=== PATIENT | female | born 1965 | race Caucasian/White ===

== ENCOUNTER 2019-05-27 11:07 | Inpatient (IN) | payer SELFPAY ==
[2019-05-27] MEDS ORDERED: IBUPROFEN 200 MG TAB PO ONE (11:21)
[2019-05-27] MEDS ORDERED: ACETAMINOPHEN 325 MG TAB PO ONE (11:25)
[2019-05-27] MEDS ORDERED: SODIUM CHLORIDE 0.9% 1000ML 1,000 ML IVS ONE ×2 (11:25→13:40)
[2019-05-27] MEDS ORDERED: ONDANSETRON INJ 4 MG/2 ML VIAL IV ONE (11:25)
[2019-05-27] MEDS ORDERED: cefTRIAXone SODIUM 1 GM in SODIUM CHL 0.9% 50ML MIN-BAG+ 50 ML IVPB ONE (11:25)
--- NOTE | 2019-05-27 11:29 | ED.PDOC ---
History of Present Illness - General Chief Complaint: Abdominal Pain Stated Complaint: Abdominal discomfort, dysuria, fever Time Seen by Provider: 05/27/19 11:24 Additional Information: Patient is a 53-year-old female who presents to the ED with chief complaint of urinary discomfort. Patient indicates that she has had dysuria and urinary frequency for the past 5 days. She indicates that today her symptoms became considerably worse with new left flank pain and patient came to the ED for evaluation. Patient had an episode of nausea and vomiting this morning. Patient denies fever at home but says "I just feel bad". Patient denies abdo catalina pain or diarrhea. She further denies chest pain or shortness of breath. Patient indicates that she has had a bladder or kidney infection "once or twice" in the past. Patient has no other complaints or concerns at this time. - History of Present Illness Allergies/Adverse Reactions: Allergies Codeine Allergy (Verified 05/27/19 11:15) Shortness of Breath Review of Systems - Review of Systems Constitutional: States: malaise. Denies: chills EENTM: States: no symptoms reported. Denies: throat pain Respiratory: Denies: cough, orthopnea, short of breath, wheezing Cardiology: Denies: chest pain, palpitations Gastrointestinal/Abdominal: States: nausea, vomiting. Denies: abdominal pain, diarrhea Genitourinary: States: see HPI, dysuria, frequency. Denies: hematuria Musculoskeletal: States: no symptoms reported. Denies: muscle pain Skin: States: no symptoms reported. Denies: rash Neurological: States: no symptoms reported All other Systems: Reviewed and Negative Past Medical History (General) - Patient Medical History Hx Stroke: No Hx Cardiac Disorders: Yes - Hypercholesterolemia Hx Congestive Heart Failure: No Hx Diabetes: No Hx MRSA: No - Vaccination History Hx Influenza Vaccination: No Hx Pneumococcal Vaccination: No - Social History Hx Tobacco Use: Yes Hx Alcohol Use: Yes - Social Hx Substance Use: No Family Medical History - Family History Mother Living Status: Still Living Hx Family Hypertension: Yes Physical Exam - Physical Exam General Appearance: Alert, Comfortable, No apparent distress, Well Developed, Well Nourished Eyes, Ears, Nose, Throat Exam: normal ENT inspection, pharynx normal Neck: full range of motion, supple, normal inspection Cardiovascular/Respiratory: no M/R/G, normal peripheral pulses, no JVD, normal breath sounds, no respiratory distress, tachycardia Gastrointestinal/Abdominal: normal bowel sounds, soft, tenderness - Mild suprapubic Back Exam: normal inspection, CVA tenderness (L) - Mild Extremity: normal range of motion, non-tender, normal inspection, no pedal edema Neurologic: undertaker helper II-XII nml as tested, no motor/sensory deficits, alert, normal mood/affect, oriented x 3 Skin Exam: normal color, warm/dry Progress - Progress Progress: 05/27/19 11:32 Differential diagnosis includes but is not limited to sepsis, pyelonephritis, UTI, viral illness 05/27/19 13:43 Patient reassessed and is feeling much better at this time status post IV fluids and antibiotics. Patient's urine is considerably dirty and her CT is consistent with pyelonephritis and this does match the clinical picture. Patient has been cultured and IV Rocephin given, patient will need admission for IV antibiotics and fluids. Patient's lactate is pending but I believe she does meet sepsis parameters. 05/27/19 13:[address] Castillo, hospitalist, who accepts patient for admission. 05/27/19 14:28 EKG: Normal sinus rhythm, rate of 73, prolonged WV, normal QRS, normal axis, normal ST and T waves, negative STEMI. Read by Melquiades Maurer MD. Departure - Departure Clinical Impression: Pyelonephritis, Severe sepsis without septic shock Time of Disposition: 13:46 Disposition: Admit Patient Condition: Fair Decision To Admit - Decistion To Admit Decision to Admit Reason: Admit from ER Decision to Admit Date: 05/27/19 Decision to Admit Time: 13:47
[2019-05-27] MEDS ORDERED: cefTRIAXone SODIUM 1 GM VIAL ONE (11:44)
[2019-05-27] MEDS ORDERED: SODIUM CHL 0.9% 50ML MIN-BAG+ 50 ML IVPB ONE (11:45)
--- NOTE | 2019-05-27 12:55 | CT ---
EXAM DESCRIPTION: Abdomen/Pelvis w/Contrast CLINICAL HISTORY: 53 years Female, Pyelonephritis TECHNIQUE: This exam was performed according to our departmental dose-optimization program, which includes automated exposure control, adjustment of the mA and/or kV according to patient size and/or use of iterative reconstruction technique. COMPARISON: None at time of initial interpretation. FINDINGS: Visualized lung bases are grossly unremarkable. Posterior right hepatic lobe low-attenuation lesion either a cyst or a hemangioma. No suspicious hepatic lesion. No biliary dilatation. The gallbladder is decompressed. The spleen, pancreas and adrenal glands are unremarkable. Asymmetric enlargement of the left kidney. Heterogeneous left renal enhancement. No hydronephrosis or urolithiasis identified. Asymmetrically increased left perinephric/periureteral fat stranding. Low-attenuation left renal lesion measuring 2.6 cm series 2 image 40. Bladder is decompressed. No adnexal mass. Scattered colonic diverticula without focal inflammatory change. No evidence of bowel obstruction. No findings to suggest appendicitis. No adenopathy. No focal fluid collection. No free air. Normal caliber abdominal aorta. No acute or suspicious osseous abnormality. Scattered degenerative changes present. IMPRESSION: 1. Acute left pyelonephritis. 2. Left renal low-attenuation lesion measuring 2.6 cm. This finding most likely reflects a cyst. Other less likely considerations include a developing abscess. Electronically signed by: Pradeep Pacheco MD 05/27/2019 12:54 PM APARTMENT GROUNDSKEEPER
[2019-05-27] MEDS ORDERED: ALBUTEROL SULFATE NEBS (ED DISPENSE) 2.5 MG/3 ML VIAL NEB ONE (13:39)
[2019-05-27] MEDS ORDERED: SODIUM CHLORIDE 0.9% 1000ML 2,000 ML IVS ONE (13:47)
--- NOTE | 2019-05-27 14:36 | HP ---
SUPERVISING PHYSICIAN: Kahlil Castillo MD CHIEF COMPLAINT: Abdominal and left lower back pain. HISTORY OF PRESENT ILLNESS: This is a 53 year-old female patient who presents to the Emergency Room with a chief complaint of abdominal pain with left lower back pain. She said about a week ago she started having some symptoms of a urinary tract infection, it was more on the left side. She started treating it with increasing her fluids as well as cranberry juice. Her symptoms worsened to the point that this morning she had nausea and vomiting and chills. She had just recently moved back to this area from the [facility]. 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 Mik Dubois was her primary care physician. In the Emergency Room her initial vital signs were temperature of 103.8, heart rate 116, blood pressure 116/91, respiratory rate 22, oxygen saturation 98% on room air. Laboratory studies were done with a WBC of 9.7 with hemoglobin 12.0, hematocrit 34.9. Chemistries showed a sodium of 134, potassium 4, chloride 96, carbon dioxide 26, serum osmolality 270.7, lactic acid 0.7, total bilirubin of 1. Urinalysis showed urine protein of greater than 300, large amount of urine blood, small amount of urine bilirubin, small amount of urine leukocyte esterase. Urine RBCs were obscured by WBCs,. Urine WBCs are too numerous to count and urine bacteria was obscured by WBCs. Blood culture was done and urine culture was also ordered. She was given several liters of fluid and Rocephin was started and I was called for hospital admission. PAST MEDICAL HISTORY: 1. Hyperlipidemia. PAST SURGICAL HISTORY: None. CURRENT MEDICATIONS: None. ALLERGIES: CODEINE. FAMILY HISTORY: SOCIAL HISTORY: She was recently living in the [facility]. She has recently moved back to the [place] area. She smokes about 4 cigarettes per week and drinks alcohol on a social basis. She denies any illicit drug use. She is single, recently . REVIEW OF SYSTEMS: GENERAL: Positive for fever, negative for chills or weight changes. HEENT: Negative for sinus symptoms, ear pain, vision changes, sore throat. RESPIRATORY: Negative for coughing, wheezing, shortness of breath CARDIAC: Negative for chest pain, palpitations, tachycardia. GI: Positive for nausea and vomiting. Negative for diarrhea or abdominal pain.. GENITOURINARY: Positive for dysuria, polyuria, negative for hematuria. MUSCULOSKELETAL: Negative for arthralgias, myalgias. . SKIN: Negative for lesions or rashes. NEUROLOGICAL: Negative for weakness, headaches, or seizures. PHYSICAL EXAMINATION: VITAL SIGNS: Temperature 98.1, heart rate 76, blood pressure 93/58, respiratory rate 18, oxygen saturation 98% on room air. GENERAL: This is a 53 year-old female patient lying in her hospital bed. She is in no acute distress. HEENT: Normocephalic and atraumatic. Pupils are equal and reactive. Oropharynx is clear. NECK: Supple without mass. RESPIRATORY: Essentially clear to auscultation bilaterally. CHEST: There is equal rise and fall of the chest with inspiration and expiration. CARDIOVASCULAR: Regular rate and rhythm. ABDOMEN: Soft, mildly tender in the suprapubic area. She does have some moderate left CVA tenderness. BACK: Exam deferred. GENITOURINARY: Deferred. EXTREMITIES: No cyanosis, clubbing, or edema. NEUROLOGIC: She is awake, alert, and oriented x3. Cranial nerves II through XII are grossly intact as tested. SKIN: Warm and dry. LABORATORY: As per history of present illness. RADIOLOGY: Abdomen/pelvis CT: 1. Acute left pyelonephritis. 2. Left renal low attenuation lesion measuring 2.6 cm, the finding most likely reflects a cyst, other less likely considerations including a developing abscess. All other labs and films have been reviewed via the EMR. ASSESSMENT: 1. Sepsis related to acute left pyelonephritis with admitting temperature of 103.7, heart rate 109, respiratory rate 22. 2. Hyperlipidemia. PLAN: We will admit the patient to the hospital. Will continue giving fluids and watch her blood pressure. I have also continued her Rocephin. Will monitor her cultures as they become available. She was concerned that she had had unprotected sex and that her symptoms may be due to that so I will do a STD panel. She will have Lovenox for DVT prophylaxis, ordered her acetaminophen as well as ibuprofen, antiemetics and we will monitor her closely over the next few days and hope for discharge in the next 2 to 3 days. #[id number] [facility]
[2019-05-27] MEDS ORDERED: ONDANSETRON INJ 4 MG/2 ML VIAL IV PRN (15:46)
[2019-05-27] MEDS ORDERED: SODIUM CHLORIDE 0.9% (FLUSH) 10 ML SYG IV PRN (15:46)
[2019-05-27] MEDS ORDERED: SODIUM CHLORIDE 0.45% 1000ML 1,000 ML IVS PRN (15:51)
[2019-05-27] MEDS: IV SET AND CAP CHANGE INJ INJ SCH (20:39)
[2019-05-27] MEDS: ENOXAPARIN SODIUM 40 MG/0.4 ML SYG SUBCU SCH (20:39)
[2019-05-27] MEDS: MAGNESIUM HYDROXIDE 30 ML UD PO PRN (20:46)
[2019-05-27] MEDS: SODIUM CHLORIDE 0.9% (FLUSH) 10 ML SYG IV SCH (22:02)
[2019-05-27] MEDS: ACETAMINOPHEN 325 MG TAB PO PRN (22:03)
[2019-05-27] MEDS: IBUPROFEN 200 MG TAB PO PRN (23:31)
[2019-05-28] MEDS ORDERED: SODIUM CHL 0.9% 50ML MIN-BAG+ 50 ML IVPB ONE (06:58)
[2019-05-28] MEDS ORDERED: cefTRIAXone SODIUM 1 GM VIAL ONE (06:58)
[2019-05-28] MEDS: cefTRIAXone SODIUM 1 GM in SODIUM CHL 0.9% 50ML MIN-BAG+ 50 ML IVPB SCH (08:17)
[2019-05-28] MEDS: SODIUM CHLORIDE 0.9% (FLUSH) 10 ML SYG IV SCH ×2 (08:18→21:59)
[2019-05-28] MEDS ORDERED: SODIUM CHLORIDE 0.9% 1000ML 1,000 ML IVS ONE (10:44)
[2019-05-28] MEDS ORDERED: SODIUM CHLORIDE 0.9% 1000ML 1,000 ML ONE (10:56)
--- NOTE | 2019-05-28 11:40 | US ---
EXAM DESCRIPTION: Renal: Ultrasound. CLINICAL HISTORY: 53 years Female lesion COMPARISON: None TECHNIQUE: Transcutaneous scanning: Two-dimensional and Doppler modes. FINDINGS: Right kidney measures 12.4 x 6.6 x 5.2 cm; mid-renal cortical thickness 14 mm. . Heterogeneously increased, equal to that of the liver. No hydronephrosis 1.6 mm echogenic stone in the cortex. Smooth contour of the kidney with no perinephric fluid. Normal vascularity. Proximal ureter not visible. Left kidney measures 12.8 x 6.1 x 6.1 cm; mid-renal cortical thickness normal.. Anechoic to hypoechoic mass with partially circumscribed margins and minimal wall thickening with internal echogenicity. Variable posterior acoustic enhancement or posterior shadowing. 3.0 x 2.9 x 2.8 cms. No echogenic stones in mass or kidney. No hydronephrosis. No echogenic stones in the parenchyma. Smooth contour of the kidney with no perinephric fluid. Normal vascularity.. Proximal ureter not visualized.. Urinary bladder not visualized. Abdominal aorta: not measured. IMPRESSION: 1. Pyelonephritis of the left kidney with partially cystic 3 cm lesion which could represent a developing abscess. CRITICAL COMMUNICATION: The critical value was discussed directly by phone by Dr. Kumar, with KATIE Puckett, Hospitalist, at approximately 1130 hours, on 05/28/2019. Electronically signed by: Isidro Kumar MD 05/28/2019 11:38 AM SENIOR GIS ANALYST
[2019-05-28] MEDS ORDERED: CALCIUM CARBONATE (ANTACID) 500 MG CHEWABLE TAB PO ONE (13:25)
[2019-05-28] MEDS ORDERED: CALCIUM CARBONATE (ANTACID) 500 MG CHEWABLE TAB PO PRN (13:27)
[2019-05-28] MEDS: MAGNESIUM HYDROXIDE 30 ML UD PO PRN (13:32)
[2019-05-28] MEDS: ENOXAPARIN SODIUM 40 MG/0.4 ML SYG SUBCU SCH (21:05)
[2019-05-28] MEDS ORDERED: MORPHINE SULFATE INJ 10 MG/ML VIAL IV PRN (21:34)
[2019-05-28] MEDS: BIFIDOBACTERIUM INFANTIS 4 MG CAP PO SCH (21:59)
[2019-05-28] MEDS: KETOROLAC TROMETHAMINE INJ 30 MG/ML VIAL IV SCH (22:00)
[2019-05-29] MEDS: KETOROLAC TROMETHAMINE INJ 30 MG/ML VIAL IV SCH ×3 (03:54→15:39)
[2019-05-29] MEDS ORDERED: SODIUM CHL 0.9% 50ML MIN-BAG+ 50 ML IVPB ONE (07:55)
[2019-05-29] MEDS ORDERED: cefTRIAXone SODIUM 1 GM VIAL ONE (07:55)
--- NOTE | 2019-05-29 08:10 | PN ---
SUPERVISING PHYSICIAN: Kahlil Castillo MD DATE: 05/28/19 SUBJECTIVE: The patient is lying in bed. She has no complaints except a bit of acid reflux. She denies chest pain, nausea, vomiting, diarrhea. OBJECTIVE: VITAL SIGNS: Temperature 97.4. Heart rate 78. Blood pressure 95/61. Respiratory rate 24. O2 saturation 99% on room air. RESPIRATORY: Essentially clear to auscultation bilaterally. CARDIAC: Regular rate and rhythm. GASTROINTESTINAL: Abdomen is soft, nondistended. She is mildly tender in the suprapubic area. She does have some mild left CVA tenderness. NEUROLOGIC: Awake, alert and oriented times three. LABORATORY: WBCs 9.9, hemoglobin 9.8, hematocrit 29.6, ESR 62. Sodium slightly low at 132. The remainder of her electrolytes are within normal limits. C- reactive protein 24.3. GC chlamydia is pending. Preliminary show no growth after 24 hours. Renal ultrasound shows pyelonephritis of the left kidney with partially cystic 3 cm lesion that could represent a developing abscess. All other labs and films have been reviewed via the EMR. ASSESSMENT: 1. Sepsis related to acute left pyelonephritis with admitting temperature of 103.7, heart rate 109, respiratory rate 22. 2. History of hyperlipidemia, presently diet controlled. 3. Concerns for renal lesion that could be a developing abscess. 4. High risk sexual behavior, awaiting results of GC chlamydia. PLAN: We will continue present supportive care. I have ordered her some sleeping pills and given her some Align. She also has some Tums ordered for her acid reflux. I discontinued her IV fluids. We will followup with some lab in the AM. We will await cultures. Hopefully she can be discharged in the next 1 to 2 days. #[id number] [facility]
[2019-05-29] MEDS: cefTRIAXone SODIUM 1 GM in SODIUM CHL 0.9% 50ML MIN-BAG+ 50 ML IVPB SCH (08:42)
[2019-05-29] MEDS: BIFIDOBACTERIUM INFANTIS 4 MG CAP PO SCH ×2 (08:42→21:01)
[2019-05-29] MEDS: SODIUM CHLORIDE 0.9% (FLUSH) 10 ML SYG IV SCH ×2 (08:42→21:01)
--- NOTE | 2019-05-29 13:19 | PN ---
SUPERVISING PHYSICIAN: Kahlil Castillo MD DATE: 05/29/19 SUBJECTIVE: The patient has been afebrile now since midnight on 05/28/19. She has not had any nausea or vomiting. She notes the pain in her left flank is now lessened. OBJECTIVE: VITAL SIGNS: T-max 98.9. Pulse 78. Blood pressure 108/64. Respirations 18. Saturation 995% on room air. GENERAL: The patient is resting comfortable and appears to be in no acute distress. CHEST: Lungs are clear to auscultation bilaterally. HEART: Regular rate and rhythm. ABDOMEN: Soft, nontender. Positive bowel sounds. Left flank area and right flank area without any tenderness. EXTREMITIES: No cyanosis, clubbing or edema. NEUROLOGIC: Alert and oriented times three. LABORATORY: No additional laboratory studies today. MICROBIOLOGY: Chlamydia and GC are still pending. Blood cultures are still pending with positive cultures x2 sets with gram negative justine as well as urine culture still pending. RADIOLOGY: No additional radiographic studies today. ASSESSMENT: 1. Sepsis related to acute left pyelonephritis secondary to a gram bacilli with cultures pending. 2. History of hyperlipidemia, presently diet controlled. 3. Concerns for renal lesion that could be a developing abscess. 4. High risk sexual behavior, awaiting results of GC chlamydia. PLAN: We will continue with current antibiotic coverage at this point with Rocephin as she seems to be doing well. We will await those culture results both on her blood cultures and urine to further target antibiotic therapy as appropriate. Once those are available, we will transition to oral medications and discharge. More likely, we will need to get imaging in the form of CT with contrast prior to discharge given the findings on the ultrasound with concern for developing abscess. Hopefully we will be able to transition her to outpatient management in the next 1 to 2 days. Until then, we will continue to monitor and treat as needed. #[id number] [facility]
[2019-05-29] MEDS: TEMAZEPAM 15 MG CAP PO PRN (21:01)
[2019-05-29] MEDS: ENOXAPARIN SODIUM 40 MG/0.4 ML SYG SUBCU SCH (21:01)
[2019-05-30] MEDS: IBUPROFEN 200 MG TAB PO PRN ×2 (04:12→22:17)
[2019-05-30] MEDS ORDERED: SODIUM CHL 0.9% 50ML MIN-BAG+ 50 ML IVPB ONE (07:08)
[2019-05-30] MEDS ORDERED: cefTRIAXone SODIUM 1 GM VIAL ONE (07:08)
[2019-05-30] MEDS: ACETAMINOPHEN 325 MG TAB PO PRN ×2 (08:19→16:50)
[2019-05-30] MEDS: BIFIDOBACTERIUM INFANTIS 4 MG CAP PO SCH ×2 (08:19→20:25)
[2019-05-30] MEDS: SODIUM CHLORIDE 0.9% (FLUSH) 10 ML SYG IV SCH ×2 (08:20→20:25)
[2019-05-30] MEDS: cefTRIAXone SODIUM 1 GM in SODIUM CHL 0.9% 50ML MIN-BAG+ 50 ML IVPB SCH (08:20)
[2019-05-30] MEDS ORDERED: KETOROLAC TROMETHAMINE INJ 30 MG/ML VIAL IV ONE (13:30)
[2019-05-30] MEDS: IV SET AND CAP CHANGE INJ INJ SCH (16:50)
[2019-05-30] MEDS: ENOXAPARIN SODIUM 40 MG/0.4 ML SYG SUBCU SCH (20:25)
[2019-05-30] MEDS: TEMAZEPAM 15 MG CAP PO PRN (22:17)
--- NOTE | 2019-05-31 08:34 | CT ---
Technique Sex: Female. : 1965. Technique: Axial scans through the abdomen and pelvis with intravenous contrast including multiplanar computer reformations. Total Dose Length Product: 663. This exam was performed according to our departmental dose-optimization program, which includes automated exposure control, adjustment of the mA and/or kV according to patient size and/or use of iterative reconstruction technique. Comparison studies: May 27. Clinical history: left pyelo f/u possible abscess. Findings: Liver: Size: Moderately enlarged, 19.5 cm. Parenchyma: Fatty infiltration. 11 mm subcapsular hypoattenuating density in the posterior right lobe of the liver probably represents a cyst. No other hepatic mass. Vasculature: Portal and hepatic veins: Normal. Spleen: The spleen is enlarged and measures 13 cm. Gallbladder: Unremarkable. No pericholecystic fluid. Bile ducts: No biliary dilatation. Pancreas: normal. Adrenal glands: No evidence for bilateral adrenal mass. Kidneys: Right kidney: The right kidney is 12.6 cm. There is normal cortical enhancement. No evidence for right renal pelvic or ureteral dilatation or obstruction. Left kidney: The left kidney is 12.6 cm and appears swollen. There is abnormal, heterogeneous cortical enhancement with cortical medullary striations typically seen with renal pyelonephritis. There is mild left perinephric inflammatory fat striation. Medially there is also striation extending along the surface of the adjacent left psoas muscle. There is an irregularly thickened, now appearing partially walled off hypoattenuating mass in the posterior mid to lower pole of the left kidney. That measures 3.4 x 4.4 cm on series 2 image 41 and series 601 image 128. Compared to 3.0 x 3.2 cm. There is no nephric or perinephric emphysema. There is a question of a second 9 mm ill-defined hypodensity in the anterior mid to lower left kidney on series 2 image 37. This could be monitored on follow-up surveillance imaging. There is contrast excretion on the left side without evidence for renal pelvic or ureteral dilatation. Bladder: No evidence for bladder wall thickening. No bladder mural or intraluminal gas is seen. Uterus: Hysterectomy. Adnexa: No adnexal mass. Intestinal Tract: Stomach and duodenum: Unremarkable Small bowel: There are somewhat prominent jejunal loops. Possibly due to ileus. Large bowel: Stranding on the left side marginal to the descending gutter. Otherwise the large bowel loops are intrinsically unremarkable. There is mild to moderate proximal colonic stool burden. Appendix: Normal. Mesentery and Omentum: Normal. Retroperitoneum: Inflammatory changes left perinephric space. There are multiple small periaortic lymph nodes that are presumably reactive. Vasculature: Aorta: No aneurysm. Iliac arteries: Normal. Free fluid: None. Musculoskeletal: Musculature, abdominal wall and soft tissues: Unremarkable. Skeletal structures: Degenerative changes lower spine including facet hypertrophy. Lung bases: Small bibasilar atelectasis or trace pleural fluid. Impression: 1. Left renal pyelonephritis with a 3.4 x 4.4 cm abscess or infected cyst. Perinephric inflammatory stranding also extending to the surface of the left psoas muscle. 2. Enlarged 19.5 cm liver with fatty infiltration and 11 mm subcapsular cyst in the right lobe. 3. Enlarged 13 cm spleen. Electronically signed by: Jack Borja MD 05/31/2019 8:31 AM CUSTOMER CARE MANAGER
[2019-05-31] MEDS ORDERED: SODIUM CHL 0.9% 50ML MIN-BAG+ 50 ML IVPB ONE (09:11)
[2019-05-31] MEDS ORDERED: cefTRIAXone SODIUM 1 GM VIAL ONE (09:11)
[2019-05-31] MEDS: BIFIDOBACTERIUM INFANTIS 4 MG CAP PO SCH ×2 (09:16→20:44)
[2019-05-31] MEDS: SODIUM CHLORIDE 0.9% (FLUSH) 10 ML SYG IV SCH ×2 (09:17→20:44)
[2019-05-31] MEDS: cefTRIAXone SODIUM 1 GM in SODIUM CHL 0.9% 50ML MIN-BAG+ 50 ML IVPB SCH (09:17)
--- NOTE | 2019-05-31 10:11 | PN ---
SUPERVISING PHYSICIAN: Kahlil Castillo MD DATE: 05/30/19 SUBJECTIVE: The patient has had a little bit of headache, otherwise, no further complaints. She has been afebrile now for 48 hours. No nausea or vomiting. No flank pain. Cultures are still pending. OBJECTIVE: VITAL SIGNS: Temperature 97.2. Pulse 73. Blood pressure 105/69. Respirations 16. Saturation 9\94% on room air. GENERAL: The patient is resting comfortable and appears to be in no acute distress. She is alert. CHEST: Lungs are clear to auscultation bilaterally. HEART: Regular rate and rhythm. ABDOMEN: Soft, nontender. Positive bowel sounds. EXTREMITIES: No edema. NEUROLOGIC: Alert and oriented times three. LABORATORY: No additional laboratory studies today. MICROBIOLOGY: Preliminary urine culture shows gram negative bacilli as well as her blood cultures showed a gram negative bacilli. Those cultures are still pending. ASSESSMENT: 1. Sepsis related to acute left pyelonephritis secondary to a gram bacilli with cultures pending. 2. Gram negative bacilli bacteremia secondary to #1 with cultures pending. Patient now off for 48 hours. 3. History of hyperlipidemia, presently diet controlled. 4. Concerns for renal lesion that could be a developing abscess awaiting repeat CT scan prior to discharge. 5. High risk sexual behavior, awaiting results of chlamydia. PLAN: Will await culture results and continue with Rocephin at this point as she is doing well. Will go ahead and do a CT of her abdomen/pelvis with contrast to further assess that area on the left kidney for questionable abscess. Will get a sentinel set of blood cultures with anticipation of discharging as soon as the patient's culture and sensitivities are available. Until we can transition to outpatient management, we will continue to monitor and treat as needed. #[id number] [facility]
[2019-05-31] MEDS: levoFLOXacin 750MG IV 750 MG in PREMIX BAG 1 BAG IVPB SCH (12:24)
[2019-05-31] MEDS: ACETAMINOPHEN 325 MG TAB PO PRN (12:32)
--- NOTE | 2019-05-31 18:18 | PN ---
SUPERVISING PHYSICIAN: Kahlil Castillo MD DATE: 05/31/19 SUBJECTIVE: The patient is still doing well. She still has a slight headache but improved from yesterday. She says her left flank is hurting a little bit more than yesterday but she has been afebrile. No nausea or vomiting or abdominal pains. She has been ambulating. . OBJECTIVE: VITAL SIGNS: Temperature 98.6. Pulse 69. Blood pressure 124/76. Respirations 18. Saturation 100% on room air. GENERAL: The patient is resting comfortably and appears to be in no acute distress. CHEST: Clear to auscultation. HEART: Regular rate and rhythm. ABDOMEN: Soft, nontender. Positive bowel sounds. She does have some left- sided CVA tenderness. EXTREMITIES: No edema. NEUROLOGIC: Alert and oriented times three. LABORATORY: No additional laboratory studies today. Will do CBC and BMP in the morning. MICROBIOLOGY: Final culture results on both urine and blood cultures show an E. coli that was pansensitive. RADIOLOGY: Repeated abdominal /pelvic CT with contrast, per radiology interpretation shows left renal pyelonephritis with a 3.4 x 4.4 cm abscess or infected cyst. Paranephritic inflammatory stranding which extends to the surface of the left psoas muscle. There is an enlarged 19.5 cm liver with fatty infiltration and 11 mm subcapsular cyst on the right lobe,\. Enlarged 13 cm length ASSESSMENT: 1. Sepsis related to left pyelonephritis secondary to E. coli that was pansensitive with a developing possible infected abscess. . 2. Bacteremia secondary to E. coli due to #1 with patient now afebrile for 72 hours. 3. Hepatomegaly with steatosis. Need to followup in outpatient setting. 4. Splenomegaly, uncertain etiology, need to followup in outpatient setting. 5. History of hyperlipidemia, presently diet controlled. 6. High risk sexual behavior, awaiting chlamydia cultures. PLAN: I discussed the case with Dr. Castillo and his point based off the CT findings as well as discussed with Dr. Plasencia. I am going to talk to Dr. Kumar, radiologist, in the morning to see if he will be able to do maybe a percutaneous drainage of the abscess in question as noted on the CT. If Dr. Kumar is not available and recommends, then we certainly talk to urology, either Dr. Lopez or Dr. Ware. I will transition her to Levaquin today, 750. She will need to be more likely on 2 to 3 weeks of antibiotic coverage. Will await final culture results of all cultures sent out but at this point it looks like it is the same organism and sensitivity, is reassured it is pansensitive to all antibiotics. Will continue with close monitoring and anticipate discharge tomorrow once we have a plan in place in regards to the abscess. I will go ahead and draw sentinel blood cultures in the morning after she has been on Levaquin for 24 hours to insure that we have full coverage and close monitoring of the bacteremia. Until then, we will continue to monitor and treat as needed. #[id number] [facility]
[2019-05-31] MEDS: IBUPROFEN 200 MG TAB PO PRN (19:48)
[2019-05-31] MEDS: ENOXAPARIN SODIUM 40 MG/0.4 ML SYG SUBCU SCH (20:44)
[2019-05-31] MEDS: TEMAZEPAM 15 MG CAP PO PRN (22:09)
[2019-06-01] MEDS: BIFIDOBACTERIUM INFANTIS 4 MG CAP PO SCH ×2 (08:11→20:39)
[2019-06-01] MEDS: SODIUM CHLORIDE 0.9% (FLUSH) 10 ML SYG IV SCH ×2 (08:11→20:40)
[2019-06-01] MEDS: levoFLOXacin 750MG IV 750 MG in PREMIX BAG 1 BAG IVPB SCH (12:36)
[2019-06-01] MEDS: ACETAMINOPHEN 325 MG TAB PO PRN (14:27)
[2019-06-01] MEDS: ACETAMINOPHEN-CAFF-BUTALBITAL 1 EA TAB PO PRN (20:33)
[2019-06-01] MEDS: ENOXAPARIN SODIUM 40 MG/0.4 ML SYG SUBCU SCH (20:39)
--- NOTE | 2019-06-01 21:55 | PN ---
SUPERVISING PHYSICIAN: Paul Ruiz MD DATE: 06/01/19 SUBJECTIVE: The patient is still doing well. She still has a little bit of pain in her flank on the left side. She has had no nausea or vomiting. She has been afebrile. She has been doing well since transitioning to Levaquin. I did discuss with her that Dr. Kumar will do a percutaneous drainage of the abscess in the morning, if possible. If not and any further complications, I will discussed the case with Dr. Ware who will be contacted for followup as needed. She has no further complaints. OBJECTIVE: VITAL SIGNS: Afebrile. Temperature 97.7. Pulse 74. Blood pressure 107/67. Respirations 27. Saturation 97% on room air. GENERAL: The patient is resting comfortably and appears to be in no acute distress. CHEST: Clear to auscultation. HEART: Regular rate and rhythm. ABDOMEN: Soft, nontender. Positive bowel sounds. She still has a little bit of tenderness in the left CVA. EXTREMITIES: No edema. NEUROLOGIC: Alert and oriented times three. LABORATORY: CBC shows white count 8,800, hemoglobin 10.2, hematocrit 30.7. Differential without a left shift. ESR up to 95 from initial admission of 62. Coagulation studies showed normal PT, PTT. Chemistries showed normal electrolytes of BUN 10, creatinine 0.70. Liver functions within normal limits. C-reactive protein down from 24.3 to 7.8. GC chlamydia is still pending. MICROBIOLOGY: All cultures are coming from the blood cultures and urine show E. coli that is essentially pansensitive and sensitive to Levaquin and cephalosporins. RADIOLOGY: No additional radiographic studies today. ASSESSMENT: 1. Sepsis related to left pyelonephritis secondary to Escherichia coli that was pansensitive with the patient on Levaquin with an abscess on the left kidney awaiting percutaneous drainage with the patient showing good response to treatment. 2. Bacteremia secondary to Escherichia coli due to #1 with patient now afebrile for 4 days, awaiting percutaneous drainage and currently on Levaquin. 3. Hepatomegaly with steatosis. Need to followup in outpatient setting. 4. Splenomegaly, uncertain etiology, need to followup in outpatient setting. 5. History of hyperlipidemia, presently diet controlled. 6. High risk sexual behavior, awaiting chlamydia cultures. PLAN: I did discuss with Dr. Ruiz, Dr. Ware and Dr. Kumar the plan to have a percutaneous drainage attempted on the left kidney abscess. Dr. Ware noted that the plan of care was perfect for the current situation, but if there are any complications, he would be glad to see the patient in followup or if need transfer, he just requested that he be called prior to transfer, that he prefers that his patients be sent to [facility]. Dr. Kumar has been notified of the patient's history and physical, labs and will do an ultrasound prior to percutaneous drainage in the morning. This has been arranged through Radiology. The patient is in agreement with the plan of care. She remains on Levaquin 750 mg q daily. Per Dr. Ware's consultation by phone, the patient will need at least 2 weeks of antibiotic coverage. She will followup with Dr. Dubois through [facility] as she is bijan care at this point. I forgot to draw blood cultures today, so they will need to be drawn in the morning prior to percutaneous drainage and hopefully will be able to discharge after that procedure tomorrow. Until then, we will continue to monitor and treat as needed. #[id number] [facility]
[2019-06-01] MEDS: TEMAZEPAM 15 MG CAP PO PRN (21:57)
[2019-06-02] MEDS: ACETAMINOPHEN-CAFF-BUTALBITAL 1 EA TAB PO PRN (02:12)
[2019-06-02] MEDS: BIFIDOBACTERIUM INFANTIS 4 MG CAP PO SCH ×2 (09:03→21:23)
[2019-06-02] MEDS: SODIUM CHLORIDE 0.9% (FLUSH) 10 ML SYG IV SCH ×2 (09:03→21:23)
[2019-06-02] MEDS: levoFLOXacin 750MG IV 750 MG in PREMIX BAG 1 BAG IVPB SCH (13:09)
--- NOTE | 2019-06-02 14:08 | PN ---
SUPERVISING PHYSICIAN: Paul Ruiz MD DATE: 06/02/19 SUBJECTIVE: The patient is lying in bed. She just came back from having a drain put in her kidney. She tolerated the procedure well. She now has a drain in the kidney that has been sutured in place. She does feel somewhat anxious, but she denies any chest pain or shortness of breath. Otherwise, no nausea or vomiting, no abdominal pain. OBJECTIVE: VITAL SIGNS: Temperature 97.4, heart rate 69, blood pressure 103/65, respiratory rate 24, O2 saturation 99% on room air. RESPIRATORY: Essentially clear to auscultation bilaterally. CARDIAC: Regular rate and rhythm. NEUROLOGIC: Awake, alert and oriented times three. MICROBIOLOGY: Her second set of blood cultures are negative to date. All other labs and films have been reviewed via the EMR. ASSESSMENT: 1. Sepsis related to left pyelonephritis secondary to Escherichia coli that was pansensitive with the patient on Levaquin with an abscess on the left kidney awaiting percutaneous drainage with the patient showing good response to treatment. 2. Bacteremia secondary to Escherichia coli due to #1 with patient now afebrile for 4 days, awaiting percutaneous drainage and currently on Levaquin. 3. Hepatomegaly with steatosis. Need to followup in outpatient setting. 4. Splenomegaly, uncertain etiology, need to followup in outpatient setting. 5. History of hyperlipidemia, presently diet controlled. 6. High risk sexual behavior, her GC chlamydia cultures are negative. PLAN: We will continue present supportive care. I spoke with Dr. Kumar who placed the renal abscess drain. He gave instructions to nursing about irrigating the drain and felt she would be in the hospital another 1 to 2 days. I have given her morphine and some Ativan to control the pain post procedure. I have ordered some labs for in the morning. Her Lovenox is being held tonight and will be restarted tomorrow. She will see Dr. Lopez on discharge and will need at least 2 weeks of antibiotics, but we will watch for the culture on the abscess fluid to be returned. We will continue to follow her and treat as needed. [facility][id number] [facility]
--- NOTE | 2019-06-02 14:51 | US ---
EXAM DESCRIPTION: Renal: Ultrasound. CLINICAL HISTORY: 53 years Female left kidney abscess. . Planned CT-guided drainage today. COMPARISON: CT scan abdomen and pelvis with contrast 31 May and ultrasound bilateral kidneys 28 May. TECHNIQUE: Transcutaneous scanning: Two-dimensional and Doppler modes. FINDINGS: Left kidney measures 12.6 x 6.9 x 5.1 cm cm; mid-renal cortical thickness 14 mm.. Normal echogenicity. Partially anechoic and hypoechoic mass again visualized in the medial posterior cortex of the left lower pole, abutting the renal pelvis and the renal capsule. Internal echo components with no vascularity and posterior acoustic enhancement. Dimensions are 3.6 x 2.7 x 2.7 cm No hydronephrosis. No echogenic stones. Minimally lobular contour of the kidney with no perinephric fluid. Normal vascularity.. Proximal ureter not seen. Right kidney was not evaluated. IMPRESSION: Partially fluid partially debris-filled 3.6 cm mass in the medial lower left kidney most likely an abscess. Stable in size from prior CT scan with slight enlargement compared to prior renal ultrasound. Electronically signed by: Isidro Kumar MD 06/02/2019 2:49 PM ADULT NURSE PRACTITIONER
--- NOTE | 2019-06-02 15:48 | CT ---
EXAM DESCRIPTION: Abdomen/Pelvis w/wo Contrast: Computed Tomography. CLINICAL HISTORY: RENAL ABCESS COMPARISON: CT-guided drainage catheter placement on the same visit. CT abdomen and pelvis with contrast 31 May. TECHNIQUE: Spiral-axial scans at 2.5 mm intervals through the abdomen and pelvis before and after 75 mL Optiray 320 nonionic IV contrast. Coronal and sagittal 2.0 mm reconstructions. Exam was performed in prone position before and after placement of drainage catheter. This exam was performed according to our departmental CT dose-optimization program which includes automated exposure control, adjustment of the mA and/or kV according to patient size and/or use of iterative reconstruction technique; to reduce radiation dose to as low as reasonably achievable (ALARA). FINDINGS: Lung bases and pleura: Bilateral anterior basilar dependent atelectasis but no effusion. Liver, Stomach, Spleen, Adrenal Glands: Stable cyst posterior right subcapsular liver. 19 cm craniocaudal long axis right lobe. Stomach and other solid organs are unremarkable. Pancreas, Gallbladder, Ducts: Gallbladder contracted. Pancreas and common bile duct stable. Kidneys and Ureters: Ill-defined low-density abscess cavity subcapsular and also with mass effect on the lower collecting system is visualized measuring approximately 3.8 x 3.0 x 2.9 cm on the precontrast images. The drainage catheter is well visualized in the posterior medial cortex of the inferior pole on the post procedure post contrast images with the pigtail segment of the catheter containing drainage holes within the abscess cavity. Minimal contrast in the proximal left ureter. Minimal pararenal fascial thickening postcontrast. No hydronephrosis bilaterally. No perirenal fascial thickening around the right kidney. Mesentery: Pararenal fascial thickening as described. No free peritoneal or retroperitoneal air. Aorta: Normal caliber. Small Bowel: Included segments with minimal gas and fluid but no distention. Terminal Ileum/Cecum: Not visualized. Colon: Included segments with minimal gas and fecal matter proximal ascending colon, distal descending colon sigmoid and rectum not on the study. Spine: Grade 1 anterolisthesis L4-L5 stable. Abdominal Wall/Back Soft Tissues: Drainage catheter enters the subcutaneous tissues left lower back just lateral to the lateral image of the left psoas muscle. Subcutaneous topical anesthetic visualized. IMPRESSION: CT scan of the abdomen before and after IV contrast and before and after CT-guided drainage catheter placement, left renal abscess. Drainage catheter customarily positioned in the left renal abscess. Minimal fluid and edema in the left pararenal space. No contrast extravasation. No significant amount of free air in the pararenal space. Electronically signed by: Isidro Kumar MD 06/02/2019 3:46 PM OPERATIONS DEVELOPER
[2019-06-02] MEDS: IV SET AND CAP CHANGE INJ INJ SCH (15:51)
[2019-06-03] MEDS ORDERED: ALBUTEROL SULFATE 2.5 MG/3 ML VIAL NEB ONE (07:00)
[2019-06-03] MEDS: levoFLOXacin 750MG IV 750 MG in PREMIX BAG 1 BAG IVPB SCH ×2 (07:29→12:55)
[2019-06-03] MEDS: SODIUM CHLORIDE 0.9% (FLUSH) 10 ML SYG IV SCH (09:55)
[2019-06-03 10:10] VITALS: O2SAT 98
[2019-06-03] MEDS: BIFIDOBACTERIUM INFANTIS 4 MG CAP PO SCH (10:10)
[2019-06-03] MEDS: IBUPROFEN 200 MG TAB PO PRN (12:51)
[2019-06-03] MEDS ORDERED: levoFLOXacin 500 MG TAB ONE (13:11)
[2019-06-03 19:20] VITALS: BP 110/64; TEMP 98.4
[2019-06-03] MEDS ORDERED: ENOXAPARIN SODIUM 40 MG/0.4 ML SYG SUBCU SCH (21:00)
--- NOTE | 2019-06-04 08:30 | DS ---
SUPERVISING PHYSICIAN: Paul Ruiz MD DISCHARGE DIAGNOSIS: 1. Sepsis related to left pyelonephritis secondary to Escherichia coli that was pansensitive with the patient on Levaquin with an abscess on the left kidney with percutaneous drain placed per Radiology yesterday. She is having good response to treatment. 2. Bacteremia secondary to Escherichia coli due to #1 with patient now afebrile for 5 days. She had a percutaneous drain done yesterday and currently on Levaquin. 3. Hepatomegaly with steatosis, need followup as outpatient. 4. Splenomegaly, uncertain etiology, need followup as outpatient. 5. History of hyperlipidemia, presently diet controlled. 6. High risk sexual behavior, her GC chlamydia cultures were negative. HISTORY OF PRESENT ILLNESS: This is a 53 year-old female patient who presented to the Emergency Room with a chief complaint of abdominal pain with left lower back pain. About a week prior to admission, she started having some symptoms of a urinary tract infection, more on the left side. She started treating it with increasing her fluids as well as cranberry juice. Her symptoms worsened to the point that she had to come to the Emergency Room. She actually nausea and vomiting with chills. She had just recently moved back to this area from the [facility]. 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 Dr. Mik Dubois was her primary care physician at that time. In the Emergency Room, her initial vital signs were temperature of 103.5, heart rate 116, blood pressure 116/91, respiratory rate 22, oxygen saturation 98% on room air. Laboratory studies were done with a WBC of 9.7 with hemoglobin 12.0, hematocrit 34.9. Chemistries showed a sodium of 134, potassium 4, chloride 96, carbon dioxide 26, serum osmolality 270.7, lactic acid 0.7, total bilirubin of 1. Urinalysis showed urine protein of greater than 300, large amount of urine blood, small amount of urine bilirubin, small amount of urine leukocyte esterase. Urine RBCs were obscured by WBCs,. Urine WBCs are too numerous to count and urine bacteria was obscured by WBCs. Blood culture was done and urine culture was also ordered. She was given several liters of fluid and Rocephin was started and she was admitted to the hospital. HOSPITAL COURSE: There were some concerns for a left kidney abscess and that was monitored closely with multiple CT scans. She was continued on Rocephin. She did say that she was concerned that she had one episode of unprotected sex and she had an STD panel done. Lovenox was given for DVT prophylaxis. She also had pain medicine. Her symptoms slowly improved. There were again concerns for developing abscess on the left kidney. After a CT exam was done that showed a renal abscess, Dr. Plasencia was consulted as well as Dr. Kumar, the radiologist. They then decided to call Dr. Ware, urologist in [place]. Her cultures came back for E. coli that was sensitive to Levaquin and she was transitioned to Levaquin and her Rocephin was discontinued. Dr. Kumar placed a percutaneous drain in the left kidney abscess. 15 cc of bloody, pus-like drainage was obtained and was sent for culture. Initially, Dr. Kumar had the nurses irrigate the abscess, but there was very little drainage. After talking to Dr. Ware today, he felt that the drain could be left in and placed to small drainage bag, it needed no further draining and she could followup with him next week and continue on 2 weeks of oral antibiotics. She will be discharged home today in stable condition. LABORATORY: WBCs remained stable from 8.8 to 9.7. Hemoglobin and hematocrit were stable at 10.8 and 32.1. Platelet count was slightly elevated today at 455. Her initial ESR was 62. Followup ESR was 95. Electrolytes were basically within normal limits. Initially, her bilirubin was high at 1.1 and is now 0.4. C-reactive protein was 24.3. GC chlamydia was negative. Her initial aerobic blood culture was positive for E. coli and pansensitive. Another preliminary sent of blood cultures was completed and so far are negative. RADIOLOGY: As per history of present illness. In addition, her renal ultrasound from yesterday was partially fluid debris filled 3.6 cm mass in the medial lower left kidney, most likely abscess, stable in size from prior CT scan with slight enlargement compared to prior renal ultrasound. DISCHARGE PLAN: The patient will be discharged home today in stable condition. She does have a percutaneous drain with a small drainage bag. She was given instructions by nursing how to care for it. She will resume her previous diet and activity. She does not utilize any outpatient medications, but she will be discharged home on Levaquin for 14 days. She has a followup with Dr. Venu Ware in [place] on 06/11/19 at 1:15 PM. She is to call Dr. Dubois's office at [facility] to schedule a followup next week. She is to return to the hospital or followup with Dr. Dubois for any problems or complications. [facility][id number] [facility]
[2019-06-09] MEDS ORDERED: levoFLOXacin 500 MG TAB PO ONE (07:34)
== END 2019-06-03 18:33 | disposition home or self-care (01) | DRG 871 ==
LOC: ER 11:07 → MS 14:33 → OBSVTOIN 14:33
PROVIDERS: ADMIT Nurse Practitioner Acute Care; ATTEND Nurse Practitioner Acute Care
PROC: BW211ZZ Computerized Tomography (CT Scan) of Abdomen and Pelvis using Low Osmolar Contrast (ICD-10-PCS; 2019-05-27)
PROC: BW2110Z Computerized Tomography (CT Scan) of Abdomen and Pelvis using Low Osmolar Contrast, Unenhanced and Enhanced (ICD-10-PCS; principal; 2019-06-02)
PROC: 0T9130Z Drainage of Left Kidney with Drainage Device, Percutaneous Approach (ICD-10-PCS; 2019-06-02)
DX: A41.51 Sepsis due to Escherichia coli [E. coli] (principal); N15.1 Renal and perinephric abscess; N10 Acute pyelonephritis; K76.0 Fatty (change of) liver, not elsewhere classified; R16.2 Hepatomegaly with splenomegaly, not elsewhere classified; E78.5 Hyperlipidemia, unspecified; Z72.51 High risk heterosexual behavior; Z88.5 Allergy status to narcotic agent; F17.210 Nicotine dependence, cigarettes, uncomplicated; R51 Headache; K21.9 Gastro-esophageal reflux disease without esophagitis; R65.20 Severe sepsis without septic shock

== ENCOUNTER → 2019-06-10 | Outpatient (CLI) | payer SELFPAY ==
--- NOTE | 2019-06-10 12:37 | CT ---
EXAM DESCRIPTION: Abdomen/Pelvis w/wo Contrast: Computed Tomography. CLINICAL HISTORY: PYELONEPHRITIS. Check drainage catheter left renal abscess. COMPARISON: CT-guided placement of drainage catheter left renal abscess [address] scan of abdomen and left renal abscess with IVC, 31 May 2019. TECHNIQUE: Spiral-axial scans at 5 x 5 mm intervals through the abdomen and pelvis before and after 75 mL, Optiray 320 nonionic IV contrast. No oral contrast. Coronal and sagittal 2.0 mm reconstructions, post IVC. 5 mm Delayed helical-axial scans, liver through the pubic symphysis. No adverse reactions. Total Exam DLP (1547 mGy - cm. This exam was performed according to our departmental CT dose-optimization program which includes automated exposure control, adjustment of the mA and/or kV according to patient size and/or use of iterative reconstruction technique; to reduce radiation dose to as low as reasonably achievable (ALARA). FINDINGS: Kidneys and Ureters: Drainage catheter distal pigtail remains in hypo dense abscess cavity without enhancement in the cavity right kidney. Cavity dimensions 2.0 x 1.6 x 1.5. Cavity 2.9 x 2.6 x 2.1 cm post procedure. 3.4 x 3.3 x 2.9 cm prior to procedure. Proximal catheter drainage port is posterior to the cavity but subcapsular posterior renal parenchyma. No kink or fracture of the catheter in the peritoneal cavity, abdominal wall or subcutaneous tissues. No radiodense stones, no hydronephrosis, no abnormal contrast enhancement, no contrast extravasation, no perirenal abnormal contrast enhancement or fluid collection or fatty stranding. Normal caliber of the left ureter on delayed image with no extravasation. Small cysts in the right kidney with no radiodense stones, no perirenal fluid, no hydronephrosis. Right ureter is unremarkable. Mesentery: No fatty stranding or fascial thickening. No abnormal fluid collection or IV contrast collection. No free peritoneal or retroperitoneal air. Lung bases and pleura: Negative. Liver, Stomach, Spleen, Adrenal Glands: Stable subcapsular cyst posterior right hepatic lobe. Mild steatosis. Long axis right lobe 16.7 cm. Stomach and other solid organs also unchanged. Long axis plane 11.5 cm. Pancreas, Gallbladder, Ducts: Comment are visualized. Common bile duct and pancreas negative. Aorta: Unremarkable. Small Bowel: Negative. Terminal Ileum/Cecum: Unremarkable with appendix. No inflammatory changes. Colon: Moderate fecal matter throughout the colon with mild distention of the ascending colon and sigmoid colon. Pelvic Organs: Negative. Spine and Bony Pelvis: Stable grade 1 anterolisthesis L4-L5. Decreased bone density again seen. Abdominal Wall/Back Soft Tissues: Small inguinal lymph nodes. Diastases umbilicus not containing bowel. IMPRESSION: 1. Customary positioning of distal pigtail of drainage catheter in abscess cavity inferior medial left kidney. Cavity has decreased in size compared to post procedure images and preprocedure images. No enhancement in the cavity and no fatty stranding or perirenal fluid. No hydronephrosis or abnormal contrast enhancement. 2. Moderate constipation proximal and proximal mid colon and sigmoid colon. 3. Borderline hepatomegaly and steatosis. Spleen no longer enlarged. Otherwise no change compared to the prior preprocedural abdominal pelvic CT scan. Electronically signed by: Isidro Kumar MD 06/10/2019 12:35 PM BOX BRANDER
== END ==
LOC: CT 09:41
PROVIDERS: ATTEND Family Medicine
DX: D86.84 Sarcoid pyelonephritis (principal); K59.00 Constipation, unspecified; Z96.0 Presence of urogenital implants; Z98.890 Other specified postprocedural states